=== PATIENT | male | born 1955 | race African-American/Black ===

== ENCOUNTER 2019-11-27 11:22 | Emergency (ER) | payer BC ==
[~2019-11-27] VITALS: Ht 177.8 cm; Wt 106.0 kg
[2019-11-27] MEDS ORDERED: VISCOUS LIDOCAINE 2% 15 ML UDC PO STA (12:21)
[2019-11-27] MEDS ORDERED: MAGNESIUM/ALUMINUM HYDROXIDE/SIMETHICONE 30ML UDC PO STA (12:21)
[2019-11-27 15:15] LABS: CHLORIDE 101 mEq/L (98-107)
[2019-11-27 15:16] LABS: BASOPHILS % 0.5 % (0.0-2.0); EOSINOPHILS % 3.2 % (0.0-5.0); HEMATOCRIT. 47.2 % (42.0-52.0); HEMOGLOBIN. 16.1 g/dL (14.0-18.0); LYMPHOCYTES % 22.2 % (20.0-50.0); MEAN CORPUSCULAR HEMOGLOBIN 31.8 pg (28.0-32.0); MEAN CORPUSCULAR VOLUME 93.4 fL (80.0-94.0); MEAN PLATELET VOLUME 9.1 fl (7.4-10.4); NEUTROPHILS % 63.1 % (40.0-76.0); PLATELET 122 x1000/uL (130-400); RED BLOOD CELL COUNT 5.05 mill/uL (4.7-6.1); RED CELL DISTRIBUTION WIDTH 15.4 % (11.6-14.6)
[2019-11-27 16:18] VITALS: BP 146/98
== END 2019-11-27 16:20 | disposition home or self-care (01) ==
LOC: ER 11:22
DX: R11.2 Nausea with vomiting, unspecified (principal); R10.0 Acute abdomen; R03.0 Elevated blood-pressure reading, without diagnosis of hypertension
CPT/HCPCS: 36415; 80053; 85025; 93005; 99284